=== PATIENT | female | born 1995 | race Caucasian/White ===

== ENCOUNTER 2020-04-18 14:06 | Inpatient (IN) | payer OTHER ==
[~2020-04-18] VITALS: Ht 175.3 cm; Wt 99.0 kg
[2020-04-20] MEDS ORDERED: TERBUTALINE 1 MG/ML, 1ML SQ PRN (06:30)
[2020-04-20] MEDS ORDERED: TERBUTALINE 1 MG/ML, 1ML IVPush PRN (06:30)
[2020-04-20] MEDS ORDERED: OXYTOCIN 30U/ 0.9% NaCL 500ML 500 ML IV ONE (06:30)
[2020-04-20 06:52] LABS: BASOPHILS % (AUTO) 1 % (0-1); EOSINOPHILS % (AUTO) 0 % (1-7); LYMPHOCYTES % (AUTO) 18 % (22-44); MEAN CORPUSCULAR HEMOGLOBIN 32.1 pg (27.0-34.8); MEAN CORPUSCULAR HGB CONC 34.6 g/dL (32.4-35.8); MEAN PLATELET VOLUME 8.4 fL (7.4-10.4); MONOCYTES % (AUTO) 8 % (2-9); NEUTROPHILS % (AUTO) 74 % (42-75); PLATELET COUNT 156 x10^3/uL (130-400); RED BLOOD COUNT 4.16 x10^6/uL (3.82-5.3); RED CELL DISTRIBUTION WIDTH 12.8 % (9.6-15.2)
[2020-04-20 06:56] LABS: MD NO
[2020-04-20] MEDS ORDERED: CALCIUM CARBONATE 500 MG TAB.CHEW PO PRN (07:00)
[2020-04-20] MEDS: D5%-LACTATED RINGERS 1,000 ML IV SCH ×3 (07:00→23:00)
[2020-04-20] MEDS ORDERED: FENTANYL PF 100 MCG/2ML IV PRN (07:00)
[2020-04-20] MEDS ORDERED: ONDANSETRON 2MG/ML, 2ML IVPush PRN (07:00)
[2020-04-20] MEDS ORDERED: FENTANYL PF 100 MCG/2ML IVPush PRN (07:00)
[2020-04-20] MEDS ORDERED: OXYTOCIN 30U/ 0.9% NaCL 500ML 500 ML IV PRN (07:00)
[2020-04-20] MEDS: LACTATED RINGERS 1,000 ML IV SCH ×3 (07:17→23:00)
[2020-04-20] MEDS ORDERED: EPHEDRINE 50 MG/ML, 1ML ONE (12:20)
[2020-04-20] MEDS ORDERED: BUPIVACAINE 0.25% ONE (12:44)
[2020-04-20] MEDS ORDERED: FENTANYL/BUPIV./NS/PF 250 ML EPIDCONT ONE (12:44)
[2020-04-20] MEDS ORDERED: FENTANYL/BUPIV./NS/PF 250 ML EPIDCONT SCH ×2 (13:00)
[2020-04-20] MEDS ORDERED: EPHEDRINE 50 MG/ML, 1ML IVPush PRN ×2 (13:00)
[2020-04-20] MEDS ORDERED: LACTATED RINGERS 1,000 ML IVBOLUS PRN ×2 (13:00)
[2020-04-20] MEDS ORDERED: NALOXONE 0.4 MG/ML, 1ML IVPush PRN ×2 (13:00)
[2020-04-20] MEDS ORDERED: LACTATED RINGERS 1,000 ML IV SCH ×2 (13:00)
[2020-04-20] MEDS ORDERED: NEWBORN KIT ONE (15:55)
[2020-04-20] MEDS ORDERED: SIMETHICONE 80 MG CHEW TAB PO PRN (16:30)
[2020-04-20] MEDS ORDERED: ONDANSETRON 2MG/ML, 2ML IV PRN (16:30)
[2020-04-20] MEDS ORDERED: METOCLOPRAMIDE 5 MG/ML, 2ML IV PRN (16:30)
[2020-04-20] MEDS ORDERED: METHYLERGONOVINE 0.2 MG/ML IM PRN (16:30)
[2020-04-20] MEDS ORDERED: OXYcodone/APAP 5/325MG TABLET PO PRN (16:30)
[2020-04-20] MEDS ORDERED: MISOPROSTOL 200 MCG TABLET PR PRN (16:30)
[2020-04-20] MEDS ORDERED: DOCUSATE 100 MG CAPSULE PO PRN (16:30)
[2020-04-20] MEDS ORDERED: ACETAMINOPHEN 325 MG TABLET PO PRN (16:30)
[2020-04-20] MEDS ORDERED: IBUPROFEN 600 MG TABLET ONE (19:21)
[2020-04-20] MEDS ORDERED: OXYTOCIN 30U/ 0.9% NaCL 500ML 500 ML ONE (19:21)
[2020-04-20] MEDS: IBUPROFEN 600 MG TABLET PO PRN (19:28)
[2020-04-20] MEDS: OXYTOCIN 30U/ 0.9% NaCL 500ML 500 ML IV SCH (19:29)
[2020-04-20 20:10] VITALS: BP 112/68
[2020-04-21 00:31] LABS: BASOPHILS % (AUTO) 0 % (0-1); EOSINOPHILS % (AUTO) 0 % (1-7); LYMPHOCYTES % (AUTO) 17 % (22-44); MEAN CORPUSCULAR HEMOGLOBIN 32.5 pg (27.0-34.8); MEAN CORPUSCULAR HGB CONC 34.7 g/dL (32.4-35.8); MEAN PLATELET VOLUME 8.2 fL (7.4-10.4); MONOCYTES % (AUTO) 9 % (2-9); NEUTROPHILS % (AUTO) 74 % (42-75); PLATELET COUNT 148 x10^3/uL (130-400); RED BLOOD COUNT 3.87 x10^6/uL (3.82-5.3); RED CELL DISTRIBUTION WIDTH 12.8 % (9.6-15.2)
[2020-04-21 00:32] LABS: MD NO
[2020-04-21 01:35] VITALS: BP 107/67
[2020-04-21] MEDS: IBUPROFEN 600 MG TABLET PO PRN ×3 (01:35→15:42)
[2020-04-21 01:38] VITALS: BP 107/67
[2020-04-21] MEDS: OXYTOCIN 30U/ 0.9% NaCL 500ML 500 ML IV SCH ×2 (02:30→11:45)
[2020-04-21] MEDS: OXYcodone/APAP 5/325MG TABLET PO PRN ×3 (03:40→13:17)
[2020-04-21 04:00] VITALS: BP 110/62
[2020-04-21] MEDS: D5%-LACTATED RINGERS 1,000 ML IV SCH ×2 (07:00→15:00)
[2020-04-21] MEDS: LACTATED RINGERS 1,000 ML IV SCH ×2 (07:00→16:09)
[2020-04-21 08:45] VITALS: BP 104/60
[2020-04-21] MEDS ORDERED: PRENATAL VIT/IRON/FA 1 EACH TABLET PO SCH (09:00)
[2020-04-21] MEDS ORDERED: IBUP-1222 PO (12:01)
[2020-04-21 12:35] VITALS: BP 110/70
[2020-04-21 16:10] VITALS: BP 120/77
== END 2020-04-21 17:12 | disposition home or self-care (01) | DRG 807 ==
LOC: LDIP 04-20 05:50 → 2NW 04-20 19:55
PROVIDERS: ADMIT Obstetrics & Gynecology; ATTEND Obstetrics & Gynecology
PROC: 10E0XZZ Delivery of Products of Conception, External Approach (ICD-10-PCS; principal; 2020-04-20)
PROC: 10907ZC Drainage of Amniotic Fluid, Therapeutic from Products of Conception, Via Natural or Artificial Opening (ICD-10-PCS; 2020-04-20)
PROC: 3E0R3BZ Introduction of Anesthetic Agent into Spinal Canal, Percutaneous Approach (ICD-10-PCS; 2020-04-20)
PROC: 00HU33Z Insertion of Infusion Device into Spinal Canal, Percutaneous Approach (ICD-10-PCS; 2020-04-20)
PROC: 0HQ9XZZ Repair Perineum Skin, External Approach (ICD-10-PCS; 2020-04-20)
PROC: 3E0234Z Introduction of Serum, Toxoid and Vaccine into Muscle, Percutaneous Approach (ICD-10-PCS; 2020-04-21)
DX: O26.893 Other specified pregnancy related conditions, third trimester (principal); Z37.0 Single live birth; Z20.822 Contact with and (suspected) exposure to COVID-19; Z3A.40 40 weeks gestation of pregnancy; Z82.71 Family history of polycystic kidney; Z88.1 Allergy status to other antibiotic agents; Z67.11 Type A blood, Rh negative; O70.0 First degree perineal laceration during delivery
CPT/HCPCS: 36415; 85025; 85461; 86592; 86850; 86900; 87635; G0378; J2790; J2590; J7120

== ENCOUNTER 2020-07-22 10:30 | Emergency (ER) | payer OTHER ==
[~2020-07-22] VITALS: Ht 175.3 cm; Wt 84.2 kg
[~2020-07-22 10:30] MED LIST: IBUP-1222 PO
--- NOTE | 2020-07-22 11:10 | NUR ---
PT C/O LOWER ABD CRAMPING SINCE LAST NIGHT, PT STATES IT BEGAN AFTER HAVING SEX, HAD IUD PLACED 4 WEEKS AGO. PT REPORTS VAGINAL BLEEDING SINCE IUD INSERTION, HEAVIER BLEEDING SINCE LAST NIGHT. PT PLACED ON VITALS MONITORS.
[2020-07-22 11:38] LABS: BASOPHILS % (AUTO) 0 % (0-1); EOSINOPHILS % (AUTO) 1 % (1-7); LYMPHOCYTES % (AUTO) 11 % (22-44); MEAN CORPUSCULAR HEMOGLOBIN 32.4 pg (27.0-34.8); MEAN CORPUSCULAR HGB CONC 34.6 g/dL (32.4-35.8); MEAN PLATELET VOLUME 8.2 fL (7.4-10.4); MONOCYTES % (AUTO) 8 % (2-9); NEUTROPHILS % (AUTO) 80 % (42-75); PLATELET COUNT 221 x10^3/uL (130-400); RED BLOOD COUNT 4.29 x10^6/uL (3.82-5.3)
[2020-07-22 11:54] LABS: MD SCAN
[2020-07-22 13:48] VITALS: BP 109/61
== END 2020-07-22 13:49 | disposition home or self-care (01) ==
LOC: ED 11:12
DX: N83.291 Other ovarian cyst, right side (principal); R10.31 Right lower quadrant pain; R11.0 Nausea
CPT/HCPCS: 36415; 76830; 84702; 85025; 87086; 99284